=== PATIENT | male | born 1960 | race Caucasian/White ===

== ENCOUNTER 2018-10-16 09:07 | Emergency (ER) | payer OTHER ==
[~2018-10-16] VITALS: Ht 160 cm; Wt 79.4 kg
[~2018-10-16 09:07] MED LIST: FLONASE NS
--- NOTE | 2018-10-16 09:15 | NUR ---
Dr. Boyce here to see pt for MSE.
[2018-10-16] MEDS ORDERED: BENA20TA9 PO (09:28)
[2018-10-16] MEDS ORDERED: IV NORMAL SALINE 250 ML IV ONE (09:33)
[2018-10-16] MEDS ORDERED: IOHEXOL 350 100 ML INFUS..BTL ONE (09:33)
[2018-10-16] MEDS ORDERED: SWABABLE VALVE TRANSFER SET EA MC ONE (09:33)
[2018-10-16 09:44] LABS: BASOPHILS # (AUTO) 0.1 K/uL (0.0-8.0); BASOPHILS % (AUTO) 1.1 % (0.0-2.0); EOSINOPHILS # (AUTO) 0.4 K/uL (0.0-0.7); EOSINOPHILS % (AUTO) 6.7 % (0.0-7.0); HEMATOCRIT 39.9 % (36.7-47.1); HEMOGLOBIN 12.7 g/dL (12.5-16.3); MEAN CORPUSCULAR HEMOGLOBIN 26.2 uug (23.8-33.4); MEAN CORPUSCULAR HGB CONC 32 g/dL (32.5-36.3); MEAN CORPUSCULAR VOLUME 82.7 fL (73.0-96.2); MONOCYTES # (AUTO) 0.3 K/uL (2.0-10.0); MONOCYTES % (AUTO) 5.4 % (0.0-11.0); NEUTROPHILS # (AUTO) 3.1 K/uL (1.8-8.9); NEUTROPHILS % (AUTO) 52.8 % (38.5-71.5); PLATELET COUNT (AUTO) 243 K/uL (152-348); RED BLOOD CELL COUNT(AUTO) 4.83 MIL/uL (4.06-5.63); WHITE BLOOD COUNT (AUTO) 5.9 K/uL (3.6-10.2)
[2018-10-16 09:54] LABS: CREATININE 1.2 mg/dL (0.6-1.3); POTASSIUM 5.1 mmol/L (3.5-5.1)
[2018-10-16 10:00] LABS: BILIRUBIN,DIRECT 0.1 mg/dL (0.0-0.2); BILIRUBIN,TOTAL 0.6 mg/dL (0.2-1.0)
--- NOTE | 2018-10-16 10:08 | NUR ---
Pt went down with radiologist for CT scan. Addendum: 10/16/18 at 1008 by ASAEL Pt stable and nad noted upon leaving the ER.
--- NOTE | 2018-10-16 10:23 | NUR ---
Pt returned from CT with radiology. Nad noted upon returing to the ER.
[2018-10-16 10:48] LABS: *BILIRUBIN,URIN NEGATIVE (NEGATIVE); *BLOOD, URINE NEGATIVE (NEGATIVE); *CLARITY,URINE CLEAR (CLEAR); *COLOR,URINE LIGHT YELLOW (YELLOW); *KETONES,URINE NEGATIVE (NEGATIVE); *UROBILINOGEN,URINE 0.2 E.U./dl (NORMAL); LEUKOCYTE ESTERASE ,URINE NEGATIVE (NEGATIVE); NITRITE, URINE NEGATIVE (NEGATIVE); PH,URINE 5.5 (5.0-8.0); UGLUCOSE NEGATIVE (NEGATIVE)
--- NOTE | 2018-10-16 11:11 | NUR ---
Call put in for Dr. Webb (urologist) and spoke with answering service. Awaiting return call from .
--- NOTE | 2018-10-16 11:24 | NUR ---
on the telephone with Dr. Webb.
--- NOTE | 2018-10-16 12:08 | NUR ---
IV removed. Catheter intact and site benign. Pressure and 4x4 gauze applied to site. No bleeding noted.
[2018-10-16 12:09] VITALS: BP 133/79
--- NOTE | 2018-10-16 12:10 | NUR ---
Patient discharged to home in stable conditon. Written and verbal after care instructions given. Patient verbalizes understanding of instructions.
== END 2018-10-16 12:09 | disposition home or self-care (01) ==
LOC: ER 09:08
DX: N13.30 Unspecified hydronephrosis (principal); N20.1 Calculus of ureter; N40.0 Benign prostatic hyperplasia without lower urinary tract symptoms; K21.9 Gastro-esophageal reflux disease without esophagitis; F17.200 Nicotine dependence, unspecified, uncomplicated; Z88.1 Allergy status to other antibiotic agents; Z79.899 Other long term (current) drug therapy
CPT/HCPCS: 36415; 71275; 74177; 80048; 80076; 81001; 83690; 84484; 85025; 93005; 99284; Q9967; 70030-TC; A4663; J7050